=== PATIENT | female | born 1960 | race Caucasian/White ===

== ENCOUNTER → 2016-05-24 | Outpatient (CLI) | payer BC, SELFPAY ==
[~2016-05-24] MED LIST: ASPIR 8181 MG PO; BIOTIN1 MG PO; CENTRUM COMPLE1 EACH PO; CLARITIN 10MG T10 MG PO; COZAAR100 MG PO; DETROL LA 4 MG C4 MG PO; EFFEXOR XR 75 M75 MG PO; FLONASE 0.05% N16 GM; FOLIC ACID 1 MG1 MG PO; HYDROCHLOROTHIA25 MG PO; METHOTREXATE2.5 MG PO; NAPROSYN500 MG PO; NORCO 5-325 TA1 EACH PO; PLAQUENIL 200200 MG PO; PREDNISONE2.5 MG PO; PRILOSEC20 MG PO; REQUIP2 MG PO; TOPROL XL50 MG PO
== END ==
LOC: RAD 15:29
DX: R05 Cough (principal)
CPT/HCPCS: 71020

== ENCOUNTER → 2016-09-04 | Outpatient (CLI) | payer BC ==
[2016-09-04 13:21] LABS: HEMOGLOBIN 11.7 gm/dl (12.3-15.3); RED BLOOD COUNT 4.07 M/UL (4.00-5.10); WHITE BLOOD COUNT 5.6 K/UL (4.5-11.0)
== END ==
LOC: OPSV2 11:30
PROVIDERS: Obstetrics & Gynecology
DX: Z01.812 Encounter for preprocedural laboratory examination (principal); N39.46 Mixed incontinence; Z88.1 Allergy status to other antibiotic agents; Z88.0 Allergy status to penicillin; Z88.2 Allergy status to sulfonamides; Z88.8 Allergy status to other drugs, medicaments and biological substances
CPT/HCPCS: 36415; 80048; 81001; 85025

== ENCOUNTER 2020-04-23 19:03 | Emergency (ER) | payer BC ==
[~2020-04-23 19:03] MED LIST changes: -CYCLOBENZAPRINE10 MG PO; -HYDROCODON-ACE1 EAC4 PO
[2020-04-24] MEDS ORDERED: CYCLOBENZAPRINE10 MG PO (00:14)
[2020-04-24] MEDS ORDERED: IBUPROFEN600 MG PO (00:14)
[2020-04-24] MEDS ORDERED: HYDROCODON-ACE1 EAC4 PO (00:19)
== END 2020-04-24 00:35 | disposition home or self-care (01) ==
LOC: ER1 19:03
DX: S32.10XA Unspecified fracture of sacrum, initial encounter for closed fracture (principal); M54.6 Pain in thoracic spine; I10 Essential (primary) hypertension; Z88.0 Allergy status to penicillin; Z88.2 Allergy status to sulfonamides; W19.XXXA Unspecified fall, initial encounter; Y92.009 Unspecified place in unspecified non-institutional (private) residence as the place of occurrence of the external cause
CPT/HCPCS: 72128; 96372; 99283; J1885

== ENCOUNTER → 2020-04-23 | Outpatient (CLI) | payer BC ==
[~2020-04-23] MED LIST changes: +AZITHROMYCIN250 MG PO; +BENADRYL25 MG PO; +CYCLOBENZAPRINE10 MG PO; +DECADRON6 MG PO; +EFFEXOR XR 150150 MG PO; -EFFEXOR XR 75 M75 MG PO; +FEOSOL45 MG PO; +FUROSEMIDE20 MG PO; +HYDROCODON-ACE1 EAC4 PO; +IBUPROFEN600 MG PO; +METOPROLOL SUC100 MG PO; +NORVASC 5 MG TAB5 MG PO; +ONE-A-DAY MENO1 EACH PO; +POTASSIUM CHLO10 ME1 PO; +PROTONIX40 MG PO; +REQUIP0.25 MG PO; +TIROSINT50 MCG PO; +ZYRTEC10 M3 PO
== END ==
LOC: RAD 11:59
DX: M54.5 Low back pain (principal); M54.9 Dorsalgia, unspecified; M41.84 Other forms of scoliosis, thoracic region; S32.049A Unspecified fracture of fourth lumbar vertebra, initial encounter for closed fracture; M47.816 Spondylosis without myelopathy or radiculopathy, lumbar region; M47.817 Spondylosis without myelopathy or radiculopathy, lumbosacral region; M41.86 Other forms of scoliosis, lumbar region; X58.XXXA Exposure to other specified factors, initial encounter
CPT/HCPCS: 71046; 72072; 72100; 72220

== ENCOUNTER → 2020-12-08 | Outpatient (CLI) | payer BC ==
[~2020-12-08] MED LIST changes: +CYCLOBENZAPRINE10 MG PO; +HYDROCODON-ACE1 EAC4 PO
== END ==
LOC: KOH-I 12:48
DX: R51.9 Headache, unspecified (principal)
CPT/HCPCS: 70450

== ENCOUNTER 2020-12-20 17:26 | Emergency (ER) | payer BC ==
[2020-12-20 18:36] LABS: HEMOGLOBIN 13.8 gm/dl (12.3-15.3); RED BLOOD COUNT 4.84 M/UL (4.00-5.10); WHITE BLOOD COUNT 8.7 K/UL (4.5-11.0)
[2020-12-20 19:00] LABS: BUN/CREATININE RATIO 10 (0-10)
== END 2020-12-20 19:47 | disposition home or self-care (01) ==
LOC: ER1 17:26
PROVIDERS: Physician Assistant
DX: I10 Essential (primary) hypertension (principal); I12.9 Hypertensive chronic kidney disease with stage 1 through stage 4 chronic kidney disease, or unspecified chronic kidney disease; N18.9 Chronic kidney disease, unspecified; Z90.49 Acquired absence of other specified parts of digestive tract; Z88.0 Allergy status to penicillin
CPT/HCPCS: 71045; 80053; 82550; 82553; 83874; 84484; 85025; 93005; 99284

== ENCOUNTER → 2021-01-12 | Outpatient (CLI) | payer BC | LOC: US 08:10 | DX: N18.9 Chronic kidney disease, unspecified (principal); K76.0 Fatty (change of) liver, not elsewhere classified; N27.1 Small kidney, bilateral; Z90.49 Acquired absence of other specified parts of digestive tract; Z98.890 Other specified postprocedural states | CPT/HCPCS: 76700 ==

== ENCOUNTER → 2021-02-14 | Outpatient (CLI) | payer BC | LOC: HEART 5 01-24 10:30 | DX: I42.0 Dilated cardiomyopathy (principal); I50.22 Chronic systolic (congestive) heart failure; I11.9 Hypertensive heart disease without heart failure ==

== ENCOUNTER → 2021-09-05 | Outpatient (CLI) | payer BC | LOC: US 08-09 09:15 | DX: K76.0 Fatty (change of) liver, not elsewhere classified (principal) | CPT/HCPCS: 76700 ==

== ENCOUNTER → 2021-09-28 | Outpatient (CLI) | payer BC ==
[~2021-09-28] MED LIST changes: +CALCITONIN-SAL3.7 ML; +CENTRUM SILVER1 EAC4 PO; +CIPRO500 MG PO; +IRON325 M1 PO; +LASIX20 MG PO; +LEVOXYL50 MCG PO; +POTASSIUM CHLO10 MEQ PO; +ROPINIROLE HCL1 MG PO; +SUPER COLLAGEN PO; +TOPAMAX25 MG PO; +TOPROL XL100 MG PO; +VALTREX1000 MG PO; +VITAMIN D350 MC3 PO
[2021-09-28 09:36] LABS: HEMOGLOBIN 13.1 gm/dl (12.3-15.3); RED BLOOD COUNT 4.62 M/UL (4.00-5.10)
== END ==
LOC: OPSV2 08:00
PROVIDERS: Obstetrics & Gynecology
DX: Z01.818 Encounter for other preprocedural examination (principal); N39.41 Urge incontinence; R94.31 Abnormal electrocardiogram [ECG] [EKG]; R00.1 Bradycardia, unspecified; Z88.0 Allergy status to penicillin; Z88.2 Allergy status to sulfonamides; Z88.8 Allergy status to other drugs, medicaments and biological substances
CPT/HCPCS: 71046; 80053; 81001; 85025; 93005

== ENCOUNTER → 2021-10-12 | Day surgery (SDC) | payer BC | END | disposition home or self-care (01) | LOC: OR 05:36 | DX: N39.41 Urge incontinence (principal); N35.82 Other urethral stricture, female; I13.0 Hypertensive heart and chronic kidney disease with heart failure and stage 1 through stage 4 chronic kidney disease, or unspecified chronic kidney disease; N18.9 Chronic kidney disease, unspecified; K21.9 Gastro-esophageal reflux disease without esophagitis; I50.9 Heart failure, unspecified; E03.9 Hypothyroidism, unspecified; E78.5 Hyperlipidemia, unspecified; M06.9 Rheumatoid arthritis, unspecified; F41.9 Anxiety disorder, unspecified; F32.A Depression, unspecified; Z79.82 Long term (current) use of aspirin; Z79.899 Other long term (current) drug therapy; Z88.0 Allergy status to penicillin; Z88.2 Allergy status to sulfonamides; Z88.8 Allergy status to other drugs, medicaments and biological substances | CPT/HCPCS: C1769; J0585; J1100; J1580; J2250; J2405; J2704; J3010 ==

== ENCOUNTER → 2021-11-09 | Outpatient (CLI) | payer BC | LOC: RAD 11:23 | DX: M25.562 Pain in left knee (principal); M25.561 Pain in right knee | CPT/HCPCS: 73564 ==